=== PATIENT | male | born 1990 | race Caucasian/White ===

== ENCOUNTER 2018-03-12 18:34 | Emergency (ER) | payer SELFPAY ==
[~2018-03-12] VITALS: Ht 185.4 cm; Wt 93.9 kg
[2018-03-12 18:39] VITALS: BP 128/81
== END 2018-03-12 19:11 | disposition home or self-care (01) ==
LOC: ER 18:39
DX: R11.0 Nausea (principal); R42 Dizziness and giddiness; R10.13 Epigastric pain; F41.9 Anxiety disorder, unspecified
CPT/HCPCS: Z7610